=== PATIENT | male | born 1955 | race Caucasian/White ===

== ENCOUNTER 2024-04-12 07:18 | Observation (INO) ==
--- NOTE | 2024-04-06 11:20 | Anesthesiology Consultation ---
Date of Service April 06, 2024 Assessment & Plan Chart Review Chart Review: Acceptable Risk for Surgery and Patient NOT seen in Pre Admission Testing Consults Requested none History Surgery Operation Date: 04/12/24 09:50 Proposed Procedures p Open Repair Possible Mesh of Right Inguinal Scrotal Hernia - Teodoro Batres MD, FACS Height/Weight Height: 6 ft Weight: 90.718 kg Allergies Allergy/AdvReac Type Severity Reaction Status Date / Time No Known Allergies Allergy Verified 04/05/24 07:33 Medications Home Medications Medication Instructions Recorded Confirmed Last Taken amlodipine 10 mg-benazepril 40 mg 1 cap PO QAM 03/21/24 04/05/24 Unknown capsule (Lotrel) tamsulosin 0.4 mg capsule (Flomax) 0.4 mg PO QAM 03/21/24 04/05/24 Unknown ergocalciferol (vitamin D2) 1,250 1,250 mcg PO WK 04/03/24 04/05/24 Unknown mcg (50,000 unit) capsule metformin 500 mg tablet 500 mg PO QAM 04/03/24 04/05/24 Unknown tolterodine 4 mg capsule,extended 4 mg PO QAM 04/03/24 04/05/24 Unknown release 24 hr ascorbic acid (vitamin C) 500 mg 500 mg PO QAM 04/05/24 04/05/24 Unknown tablet (Vitamin C) Past Medical History Medical History (Updated 04/05/24 @ 07:40 by Amina Radford RN) Overactive bladder Type 2 diabetes mellitus NIDDM Hypertension Past Family History Family History (Updated 04/05/24 @ 07:42 by Amina Radford RN) Other No family history of adverse response to anesthesia Past Surgical History Surgical History Hx of colonoscopy Social History Smoking Status: Never smoker Do You Dip or Chew Tobacco: No Hx Alcohol Use: Yes Alcohol type: beer alcohol intake frequency: a few times a month Hx Substance Use: No substance use type: does not use
[2024-04-12] MEDS: LR 15ML/HR IV SCH (08:18)
[2024-04-12] MEDS ORDERED: LIDOCAINE 2% 2 ML VIAL/AMP(20MG/ML) INFIL ONE (08:21)
[2024-04-12] MEDS ORDERED: PROPOFOL IV EMULSION 10 MG/ML 20 ML VIAL IV ONE (08:21)
[2024-04-12] MEDS ORDERED: fentaNYL citrate PF 100 MCG/2 ML VIAL ONE ×2 (08:22→09:30)
[2024-04-12] MEDS ORDERED: MIDAZOLAM HCL 1 MG/ML 2ML VIAL ONE (08:22)
[2024-04-12] MEDS ORDERED: ONDANSETRON INJ 2 MG/ML 2 ML VIAL IV PRN ×2 (08:53→09:54)
[2024-04-12] MEDS ORDERED: ATROPINE SULFATE 0.1 MG/ML 10ML SYR IV PRN (08:53)
[2024-04-12] MEDS ORDERED: ePHEDrine sulfate 50 MG/ML AMP IV PRN (08:53)
[2024-04-12] MEDS ORDERED: HYDROmorphone INJ 1 MG/ML SYRINGE IV PRN (08:53)
--- NOTE | 2024-04-12 08:55 | History & Physical Bridge Note ---
Date of Service April 12, 2024 History & Physical Bridge Note I have examined the patient, reviewed the History & Physical and in the interval since the performance of the History & Physical I have noted the following changes of clinical significance: no changes noted pt marked so at bedside all question answered
[2024-04-12] MEDS ORDERED: ROCURONIUM BROMIDE 10 MG/ML 5 ML VIAL IV ONE ×2 (09:03→10:34)
[2024-04-12] MEDS ORDERED: ceFAZolin 330 MG/ML 1 GM VIAL ONE ×2 (09:29)
[2024-04-12] MEDS ORDERED: oxyCODONE HCL IR 5 MG TAB (IMMEDIATE RELEASE) PO PRN ×2 (09:54)
[2024-04-12] MEDS ORDERED: MoRPHine SULFATE 2 MG/ML CARP IV PRN (09:54)
[2024-04-12] MEDS ORDERED: MoRPHine SULFATE 4 MG/ML 1 ML CARP\\VIAL IV PRN (09:54)
[2024-04-12] MEDS ORDERED: HYDROmorphone INJ 1 MG/ML SYRINGE ONE (11:12)
[2024-04-12] MEDS: BUPIVACAINE 0.5 % 5 MG/1 ML MPF 30ML VIAL ONE (11:29)
[2024-04-12] MEDS ORDERED: SUGAMMADEX SODIUM 200 MG/2 ML VIAL IV ONE (11:29)
--- NOTE | 2024-04-12 11:31 | Post Operative Brief Note ---
Immediate Post Op Note Date of Surgery April 12, 2024 Pre & Post Diagnosis Operation Date: 04/12/24 09:00 Pre-Op Diagnosis: Right Inguinal Hernia Post-Op Diagnosis: Direct Hernia and Lipoma of Cord; Right Inguinal Hernia I identified the patient and participated in the time-out.: Yes Procedure Operation Date: 04/12/24 09:00 Actual Procedures p Right Open Repair of Inguinal Hernia with Mesh(Right) - Teodoro Batres MD, FACS Surgeon Teodoro Batres MD, FACS [employer] Anish VENCES Estimated Blood Loss 35 Findings Consistent with Post-Op Diagnosis
--- NOTE | 2024-04-12 12:04 | Operative Report ---
PG Post Operative Report Pre & Post Diagnosis Operation Date: 04/12/24 09:00 Pre-Op Diagnosis: Right Inguinal Hernia Post-Op Diagnosis: Right Direct Inguinal Hernia and Lipoma of Cord I identified the patient and participated in the time-out.: Yes Procedure Operation Date: 04/12/24 09:00 Actual Procedures p Right Open repair direct inguinal Hernia with Mesh and lipoma the cord excision (Right) - Teodoro Batres MD, FACS The patient was brought into the operating theater supine position after having voided the preop area general trach anesthesia the right lower quadrant and scrotum was prepped Betadine scrub and solution systemic antibiotics on board timeout was had patient identified Patient had a very large scrotal hernia and incision was then made open likely by palpating the symphysis pubis anterior superior iliac crest with local anesthetic was injected to finger medial to the anterior superior iliac crest with percent Xylocaine plain and incision between these 2 was made deepened to subcutaneous tissue some prominent vessels were then ligated with 2-0 silk we cannot identify any external Bleich fascia but through the external ring and down to the scrotal area there was significant amount of tissue coming through the external ring on into the scrotal area we bluntly dissected out this to the elevated once we were able to elevate it off the symphysis pubis we placed a Maddison drain underneath and we identified is that the patient had a very large indirect hernia extending down into the scrotal area it took quite a bit of dissection to free up and identify the planes we had generalized oozing throughout the procedure but then we were able to identify that this had a direct hernia by following the shelving portion of the inguinal ligament the symphysis pubis and conjoined tendon medially we dissected out this direct hernia from the cord structures and then work towards the internal ring we can identify the cord going into the internal ring there was a lipoma of the cord in that area extending approximately 6 cm or so medially if it identified the cord structures going into the indirect ring there was no indirect hernia appreciated in the internal ring and identified is that the hernia that extended down into the scrotal area was all direct hernia once we freed this from the cord structures we then were able to get into the direct area and I used some 3-0 interrupted sutures of silk to close on the transversalis fascia to get this large hernia and contents out of the operative field once this was completed we outlined our anatomy were able to expose the shelving portion inguinal ligament laterally to the internal ring which we opened a little more along its fibers significant mount of cremasterics fibers were exposed throughout the procedure which were resected to 1 3 abdominal unable to identify specifically the cord structures were intact the direct hernia that had been reduced with 0 silk and more 3-0 silk sutures was used lateral to the internal ring we had resected the lipoma the cord likelywith 2-0 silk I elected at this point to bring a sheet of Marlex mesh and sutured onto the symphysis pubis with 2-0 Prolene sutures superior to conjoined tendon inferior to the shelving portion of the right groin cutting the mesh into limbs to go around the cord structures and close bilateral to the end internal ring by reapproximating the 2 limbs together with Prolene suture the repair appeared to be quite solid hemostasis was checked throughout the procedure and at the end making sure there was no specific active bleeding there was some generalized oozing which was controlled just with pressure and the testicle was then returned into the scrotal sac the external fascia was closed on top of the cord and the mesh with 3-0 interrupted suture of silk subcutaneous tissue brought back with 2-0 Maxon continuous fashion and cecilia for skin edges dressing was applied the procedure was tolerated well by the patient estimated blood loss 35 cc This case was extremely difficult for the dissection which was more than just free easily dissect a lot of scar tissue was present fibrotic in nature throughout the procedure that needed to be resected and dissected Malaika Tom physician office support assistant was present throughout the procedure and helped the retraction exposure wound closure Addendum I spoke to his Roxanne in the waiting area and felt to be best for the patient to keep him overnight since they live about 2 and half hours away and there is bad weather coming our way Surgeon Teodoro Batres MD, FACS Respite Care Provider Anish VENCES Estimated Blood Loss 35 Findings Consistent with Post-Op Diagnosis Large direct hernia extending to the scrotal area lipoma the cord Specimens Lipoma the cord cremasteric fibers Indications Increased pain in the right groin area Description of Procedure merda I attest to the content of the Intraoperative Record and any orders documented therein. Any exceptions are noted below.
[2024-04-12] MEDS: fentaNYL citrate PF 100 MCG/2 ML VIAL IV PRN (12:11)
--- NOTE | 2024-04-12 12:51 | Anesthesiology Progress Note ---
Date of Service April 12, 2024 Anesthesia Post Procedure Vital Signs Vital Signs: Temp Pulse Pulse Resp BP Pulse Ox O2 Del Method 04/12/24 12:40 90 17 151/82 H 99 Room Air 04/12/24 12:30 78 13 146/77 H 94 Room Air 04/12/24 12:20 79 18 135/78 95 Room Air 04/12/24 12:10 87 22 140/91 97 Room Air 04/12/24 12:00 81 15 140/84 96 Oxymask 04/12/24 11:50 36.5 C 87 18 138/76 99 Oxymask 04/12/24 07:52 Room Air 04/12/24 07:52 37.5 C 98 H 20 180/95 H 98 Room Air O2 Flow Rate 04/12/24 12:40 04/12/24 12:30 04/12/24 12:20 04/12/24 12:10 04/12/24 12:00 5 04/12/24 11:50 5 04/12/24 07:52 04/12/24 07:52 Pain Intensity Right Groin: Pain Intensity: 4 Notes Mental Status: alert / awake / arousable Patient Amnestic to Procedure: Yes Nausea / Vomiting: adequately controlled Pain: adequately controlled Airway Patency, RR, SpO2: stable & adequate BP & HR: stable & adequate Hydration State: stable & adequate Notes: No issues good for d/c
[2024-04-12] MEDS ORDERED: PHARMACY GLYCEMIC MGMT CONSULT PRN (13:54)
--- NOTE | 2024-04-12 14:10 | Pharmacy Report ---
Pharmacy Glycemic Short Note 2 - Date of Service April 12, 2024 - Glycemic Short BSG Results (Last 24 hours): 04/12/24 04/12/24 07:45 11:53 POC Glucose 226 H 186 H OUTPATIENT ANTIDIABETIC REGIMEN: * metformin 500 mg daily ASSESSMENT: * 69 year old s/p surgery, POD 0 - Pharmacy consulted for glycemic management. Patient is DM2 only on metformin. BSGs today have been >180 thus far - no steroids given intraoperatively. * Plan to start novolog weight based stress 2 dosing for now. Fasting BSG this AM was >200 - will give conservative one time dose of Lantus 10 units x 1. Diet ordered postoperatively. PLAN FOR INPATIENT GLYCEMIC CONTROL: * Hold outpatient oral diabetes medications * Basal insulin * Lantus 10 units x 1 * Bolus insulin * NovoLog per scale ACHS or Q6hrs while NPO * Goal Range: Low 110 mg/dL - High 140 mg/dL * Correction Factor: 30 mg/dL/unit * Nutritional / Prandial insulin per carb ratio of 1 unit per 10 grams CHO consumed
[2024-04-12] MEDS: LANTUS PER UNIT CHARGE SC ONE (14:25)
[2024-04-12] MEDS ORDERED: CARBOHYDRATES FOR HYPOGLYCEMIA PO PRN (14:30)
[2024-04-12] MEDS ORDERED: GLUCOSE 40% GEL 15 GM TUBE PO PRN (14:30)
[2024-04-12] MEDS ORDERED: GLUCOSE 10 TAB/TUBE PO PRN (14:30)
[2024-04-12] MEDS ORDERED: DEXTROSE 50% 50 ML SYRINGE IV PRN (14:30)
[2024-04-12] MEDS ORDERED: GLUCAGON FOR INJ 1 MG VIAL SQ PRN (14:30)
[2024-04-12] MEDS: INSULIN ASPART PER UNIT CHARGE SC SCH (17:16)
[2024-04-12] MEDS: ACETAMINOPHEN 325 MG TAB PO PRN (18:00)
[2024-04-12 23:07] VITALS: O2SAT 95
[2024-04-13 07:07] VITALS: BP 137/78; PULSE 84; RESP 18; TEMP 98.2
[2024-04-13 07:59] LABS: Estimated Average Glucose 189 mg/dl; Hemoglobin A1C 8.2 % (4.5-5.6)
[2024-04-13] MEDS: ENALAPRIL MALEATE 10 MG TAB PO SCH (08:50)
[2024-04-13] MEDS: amLODIPine BESYLATE 5 MG TAB PO SCH (08:50)
[2024-04-13] MEDS: LANTUS PER UNIT CHARGE SC SCH (08:51)
[2024-04-13] MEDS: OXYBUTYNIN CHLORIDE XL 5 MG TABCR PO SCH (08:51)
[2024-04-13] MEDS: TAMSULOSIN HCL 0.4 MG CAP PO SCH (08:51)
--- NOTE | 2024-04-13 09:00 | Surgery Progress Note ---
Date of Service April 13, 2024 Assessment & Plan (1) Right inguinal hernia: Plan: POD 1 open inguinal hernia repair expected post surgical discomfort continue ICE to groin vss tolerating diet stable for d/c follow up next week with Dr. Batres pt seen and examined with Dr. Resendez Admission and Anticipated Discharge Date Admission Date: April 12, 2024 Subjective pt denies n/v expected post surgical discomfort Review of Systems Constitutional: no fever and no chills Respiratory: no dyspnea Cardiovascular: no chest pain Gastrointestinal: no abdominal pain, no nausea and no vomiting Musculoskeletal: no muscle weakness Psychiatric: no confusion Physical Exam Constitutional: cooperative and comfortable; no acute distress Respiratory: normal respiratory effort; no respiratory distress Gastrointestinal (Abdomen): Inspection/Auscultation: + abdominal surgical incision (dressing intact, ecchymosis to scrotum expected post surgical ); abdomen not distended Percussion/Palpation: abdomen soft Psychiatric: A+Ox3, euthymic affect Results & Data Vital Signs (Past 12 Hours) Vital Signs Temp Pulse Pulse Resp BP Pulse Ox O2 Del Method 04/13/24 07:07 98.2 F 84 18 137/78 95 Room Air 04/13/24 03:16 98.1 F 79 16 121/70 95 Room Air 04/12/24 23:06 98.2 F 90 16 119/72 95 Room Air PG Care Time/CCT Total # of Minutes Spent Total Time Spent with Patient: Total time spent is greater than 50% in coordination of care (as documented) at patient's floor/unit and/or counseling patient: Coding Level of Care Code 97006 Post Operative Follow-Up Diagnoses Right inguinal hernia K40.90
--- NOTE | 2024-04-13 10:29 | Surgery Progress Note ---
Date of Service April 13, 2024 Assessment & Plan (1) Right inguinal hernia: Plan: Operative findings discussed with the patient Presently is awaiting for son to come from [place] to pick him up infected to [facility] Postoperative care again discussed with the patient including use of analgesics He is scheduled to follow-up in office in 1 week sooner if there is any issues Admission and Anticipated Discharge Date Admission Date: April 12, 2024 Subjective Having very little discomfort at the operative site stated he had significant amount of discomfort prior to surgery Physical Exam Physical Exam: Moving about without any restrictions Dressings intact dry Moderate amount of swelling and ecchymosis tender right scrotal sac as expected due to the large scrotal hernia did not have but nontender Results & Data Vital Signs (Past 12 Hours) Vital Signs Temp Pulse Pulse Resp BP Pulse Ox O2 Del Method 04/13/24 07:07 36.8 C 84 18 137/78 95 Room Air 04/13/24 03:16 36.7 C 79 16 121/70 95 Room Air 04/12/24 23:06 36.8 C 90 16 119/72 95 Room Air
--- NOTE | 2024-04-13 10:35 | Discharge Summary ---
Date of Service April 13, 2024 Principal Diagnosis Right inguinal hernia repair Discharge Exam Constitutional cooperative and comfortable; no acute distress Respiratory normal respiratory effort; no respiratory distress Gastrointestinal (Abdomen) Inspection/Auscultation: + abdominal surgical incision (dressing intact, ecchymosis to scrotum expected post surgical ); abdomen not distended Percussion/Palpation: abdomen soft Psychiatric A+Ox3, euthymic affect Discharge Data Allergies Allergy/AdvReac Type Severity Reaction Status Date / Time No Known Allergies Allergy Verified 04/12/24 07:37 Procedures Performed Operation Date: 04/12/24 09:00 Actual Procedures p Right Open Repair of Inguinal Hernia with Mesh(Right) - Teodoro Batres MD, FACS Hospital Course (1) Right inguinal hernia: This is a 69 yo male who presented to the [facility] on 04/12/24 for an elective open right inguinal hernia repair with Dr Batres. The patient tolerated the procedure well, see operative report for full details. Post operatively the patient was admitted to the hospital for overnight observation. His diet was advanced, pain managed on prn meds, and incisions clean/dry/intact. On POD#1, 04/13/24 the patient was deemed stable for discharge to home. The patient was given discharge instructions, follow up recommendations, return precautions and a prescription for narcotic pain medication. Total Time Total Time Spent Total Time Spent (In Minutes): 10 Discharge Plan Discharge Items Patient Disposition: Home - Self-Care Reason For Visit: Right Inguinal Hernia Discharge Diagnosis: right inguinal hernia repair Activity: As commented below Lifting: No more than 10 pounds Bathing Comment: You can shower 04/14. NO soaking in pools/bath for 2 weeks Exercise/Sports: Wait until after follow-up appointment Driving/Machine Use: No driving for one week Non-emergency contact: Surgeon Call non-emergency contact if: you have any medication questions, your pain is not controlled, you have a fever, your temperature is above 101.5, your wound has increased redness, your wound has increased drainage and your wound pain has increased Follow-up/Referrals: Teodoro Batres MD, FACS [Surgeon] - 04/20/24 11:00 am (Please call to schedule follow up in the office within 1 week) Cary Garcia D.ORandy [Primary Care Provider] - Diet: Carb Consistent or DM2 Addtl Attending Provider Instructions: SPECIAL CARE INSTRUCTIONS: * You may remove your outer surgical dressings on 04/14. You will have surgical cecilia in place that will be removed in the office. Cover incisions and change daily for comfort/drainage with gauze/tape. * You may shower 04/14 . NO soaking in pools or baths for 2 weeks * No lifting greater than 10lbs. No strenuous exercise until cleared by surgeon. Light walking is accepted. * No driving while taking narcotic pain medication; wait at least 1 week * No drinking alcohol while taking narcotic pain medication * Please ice your groin on and off alternating every 20 minutes until bedtime tonight * May use Ibuprofen/Tylenol over the counter for pain as tolerated. Do not exceed 3grams of Tylenol per 24 hours * Do not take plain Tylenol while you are taking the narcotic Percocet for pain. They both contain Acetaminophen and you should not exceed >3grams of Acetaminophen within a 24 hour time period * Expect some swelling and bruising. * Diet- you may resume your regular diet Call your doctor if: * Temperature above 101 degrees, nausea/vomiting, fever/chills * Pain not relieved by pain medicine ordered * There is increased drainage or redness from any incision * You have any unanswered questions or concerns [phone]. FOLLOW UP VISIT: If not already scheduled, please call the office for a follow-up visit. Office Pending Studies at Discharge: No Stand-Alone Forms: [facility] Medications and DC Order Prescriptions: New oxycodone-acetaminophen [Percocet] 5-325 mg tablet 1 - 2 tab PO .q4-6h PRN (Reason: pain, for initial therapy, max 6 tabs per day) Qty: 15 0RF Continued tamsulosin [Flomax] 0.4 mg capsule 0.4 mg PO QAM amlodipine-benazepril [Lotrel] 10-40 mg capsule 1 cap PO QAM ergocalciferol (vitamin D2) 1,250 mcg (50,000 unit) capsule 1,250 mcg PO WK tolterodine 4 mg capsule,extended release 24hr 4 mg PO QAM metformin 500 mg tablet 500 mg PO QAM ascorbic acid (vitamin C) [Vitamin C] 500 mg Tablet 500 mg PO QAM Discharge Orders: Discharge Order (Routine); Ordered 04/13/24 Ordered By: Shirin Mosqueda/Other Patient Handouts: Oxycodone/Acetaminophen Oral Tablet, Managing Type 2 Diabetes Admission Data Admit Date/Time: 04/12/24 12:03 Attending Provider: Teodoro Batres Admit Provider: Teodoro Batres Primary Care Provider: Cary Garcia Other Interventions: Discharge Summary Assessment (RN) Last Done: 04/13/24 10:22 Coding Level of Care Code 84232 INP/OBS DISCH >30 MIN Diagnoses Right inguinal hernia K40.90
== END 2024-04-13 10:50 | disposition home or self-care (01) ==
LOC: 3E 07:18 → ASU 07:18